=== PATIENT | male | born 1965 | race Hispanic/Latino ===

== ENCOUNTER 2021-07-31 07:26 | Day surgery (SDC) | payer OTHER ==
[2021-07-29 10:33] LABS: Hematocrit 50.5 % (35.5-45.6); Hemoglobin 16.9 gm/dl (11.8-15.2); Mean Corpuscular HGB Conc 34 % (32-34); Mean Corpuscular Volume 91 fl (84-94); Platelet Count 193 K/mm3 (140-440); Red Blood Count 5.56 M/mm3 (3.65-5.03); Red Cell Distribution Width 13.1 % (13.2-15.2)
[2021-07-29 10:55] LABS: Alanine Aminotransferase 20 units/L (7-56); Blood Urea Nitrogen 7 mg/dL (9-20); Calcium 9.7 mg/dL (8.4-10.2); Hemolysis Index 7
[2021-07-29 10:58] LABS: BUN/Creatinine Ratio 12
[2021-07-31] MEDS ORDERED: ceFAZolin/Water 2 GM/20 ML 2 GM/20 ML SYRINGE IV SCH (08:30)
[2021-07-31] MEDS ORDERED: fentaNYL 100 MCG/2 ML INJ ONE (08:41)
[2021-07-31] MEDS ORDERED: propofoL 200 MG/20 ML VIAL IV ONE ×2 (08:41→10:22)
[2021-07-31] MEDS ORDERED: LIDOCAINE MPF (2%) 20 MG/1 ML VIAL 5 ML ONE (08:41)
[2021-07-31] MEDS ORDERED: dexAMETHasone 20 MG/5 ML VIAL ONE (08:46)
[2021-07-31] MEDS ORDERED: ONDANSETRON 4 MG/2 ML INJ ONE (08:46)
[2021-07-31] MEDS ORDERED: LACTATED RINGERS 1,000 ML ONE (08:56)
[2021-07-31] MEDS ORDERED: ceFAZolin/Water 2 GM/20 ML 2 GM/20 ML SYRINGE IV ONE (08:58)
[2021-07-31] MEDS: LACTATED RINGERS 1,000 ML IV SCH (09:10)
--- NOTE | 2021-07-31 09:32 | Anesthesia Day of Surgery ---
Anesthesia Day of Surgery - Day of Surgery Patient Examined: Yes Patient H&P Reviewed: Yes Patient is NPO: Yes Beta Blockers: Yes
[2021-07-31] MEDS ORDERED: HYDROmorphone 1 MG/1 ML INJ IV PRN ×2 (09:34)
[2021-07-31] MEDS ORDERED: ONDANSETRON 4 MG/2 ML INJ IV PRN (09:34)
--- NOTE | 2021-07-31 09:34 | Anesthesia Consultation ---
Anesthesia Consult and Med Hx Date of service: 07/31/21 - Airway Anesthetic Teeth Evaluation: Good ROM Head & Neck: Adequate Mental/Hyoid Distance: Adequate Mallampati Class: Class II Intubation Access Assessment: Good - Pre-Operative Health Status ASA Pre-Surgery Classification: ASA2 Proposed Anesthetic Plan: General - Pulmonary Hx Smoking: Yes (1 PPD X 25 YRS) Hx Respiratory Symptoms: No (+2FS) Hx Sleep Apnea: No ([place] PRE SCREEN HIGH RISK) - Cardiovascular System Hx Hypertension: Yes (X 15 YRS) - Central Nervous System Hx Psychiatric Problems: No - Gastrointestinal Hx Gastroesophageal Reflux Disease: No - Endocrine Hx Renal Disease: Yes (Stone) Hx Non-Insulin Dependent Diabetes: Yes - Hematic Hx Anemia: No - Other Systems Hx Cancer: (SKIN CANCER ONLY- REMOVED) Hx Obesity: No
[2021-07-31] MEDS ORDERED: MIDAZOLAM 2 MG/2 ML INJ IV NR (10:00)
[2021-07-31] MEDS ORDERED: ePHEDrine SULFATE 50 MG/1 ML INJ ONE (10:32)
--- NOTE | 2021-07-31 11:06 | Short Stay Summary ---
Short Stay Documentation Date of service: 07/31/21 - History H&P: obtained from office - Allergies and Medications Current Medications: Allergies naproxen [From Aleve] Allergy (Verified 07/28/21 11:37) Shortness of Breath Home Medications Medication Instructions Recorded Confirmed Last Taken Type Metoprolol [Lopressor] 100 mg PO DAILY 07/28/21 07/28/21 Unknown History Oxycodone HCl/Acetaminophen 1 each PO Q6HR PRN 07/28/21 07/28/21 Unknown History [Percocet 2.5/325 mg] Rosuvastatin Calcium [Crestor] 10 mg PO DAILY 07/28/21 07/28/21 Unknown History lisinopriL [Zestril TAB] 40 mg PO QDAY 07/28/21 07/28/21 Unknown History metFORMIN [Glucophage] 500 mg PO BID 07/28/21 07/28/21 Unknown History traMADoL [Ultram] 50 mg PO Q4HR PRN 07/28/21 07/28/21 Unknown History Active Medications Hydromorphone HCl (Hydromorphone 1 Mg/1 Ml Inj) 0.25 mg IV Q10MIN PRN PRN Reason: Pain, Moderate (4-6) Stop: 08/01/21 09:33 Hydromorphone HCl (Hydromorphone 1 Mg/1 Ml Inj) 0.5 mg IV Q10MIN PRN PRN Reason: Pain , Severe (7-10) Stop: 08/01/21 09:33 Lactated Ringer's (Lactated Ringers) 1,000 mls @ 125 mls/hr IV DIRECT ALIDA Midazolam HCl (Midazolam 2 Mg/2 Ml Inj) 2 mg IV PREOP NR Stop: 07/31/21 23:59 Ondansetron HCl (Ondansetron 4 Mg/2 Ml Inj) 4 mg IV ONCE PRN PRN Reason: Nausea And Vomiting - Brief post op/procedure progress note Date of procedure: 07/31/21 Pre-op diagnosis: rt 8mm stone Post-op diagnosis: same Procedure: ESWL Anesthesia: GETA Surgeon: BRODY NEWBY Pathology: none Condition: stable - Hospital course Hospital course: norco & post op info on chart - Disposition Condition at discharge: Stable Disposition: 01 HOME / SELF CARE / HOMELESS Short Stay Discharge Plan Follow up with: DEBBIE HINDS MD [Primary Care Provider] - 7 Days
--- NOTE | 2021-07-31 12:19 | Post Anesthesia Evaluation ---
- Post Anesthesia Evaluation Patient Participated: Yes Airway Patent: Yes Stable Respiratory Function: Yes Nausea/Vomiting: No Temp > 96.8F: Yes Pain Manageable: Yes Adequeate Hydration: Yes Anesthesia Complications: No Block Receding Appropriately: Not Applicable Patient on Ventilator: No
--- NOTE | 2021-07-31 12:42 | Operative Report ---
DATE OF SURGERY: 07/31/2021 PREOPERATIVE DIAGNOSIS: Right renal stone, 8 mm. POSTOPERATIVE DIAGNOSIS: Right renal stone, 8 mm. PROCEDURE: Right extracorporal shockwave lithotripsy. SURGEON: Horacio Garcia MD ANESTHESIA: General. ESTIMATED BLOOD LOSS: Minimal. FLUIDS: Crystalloid. COMPLICATIONS: No complications. INDICATIONS: This patient is a 56-year-old gentleman presented to the office with right flank pain. He had CT abdomen and pelvis which revealed bilateral small stones, one stone in the right kidney of 8 mm. We discussed options including conservative and surgical treatment here. He wants to proceed with treatment. Risks, benefits and complications were explained. DESCRIPTION OF PROCEDURE: The patient was taken to the operative suite, placed in a supine position. After adequate general anesthesia, stone was localized in 2 planes using fluoroscopy. His 8 mm stone was shocked with extracorporal shockwave lithotripsy with a maximum kV of 8, 2500 shocks, after about 500 renal pause after 200 shocks. We converted to a gating after some ectopy. The patient had received approximately 500-600 shocks before we had to convert to a gating. He tolerated the procedure well otherwise. Stone was fragmented well. He was extubated and taken to recovery room in stable condition. He will go home with [place] and a strainer. TID: [id number] RECEIPT: [id number] ARMANDO/SONA
[2021-07-31 19:46] VITALS: BP 159/85
== END 2021-07-31 07:27 | disposition home or self-care (01) ==
LOC: OR 07:26
PROVIDERS: ATTEND Urology
DX: N20.0 Calculus of kidney (principal); Z20.822 Contact with and (suspected) exposure to COVID-19; I10 Essential (primary) hypertension; E11.9 Type 2 diabetes mellitus without complications; F17.210 Nicotine dependence, cigarettes, uncomplicated; Z85.828 Personal history of other malignant neoplasm of skin; Z79.899 Other long term (current) drug therapy; Z88.8 Allergy status to other drugs, medicaments and biological substances; Z98.890 Other specified postprocedural states
CPT/HCPCS: 36415; 50590; 80053; 82962; 85027; J0690; J1100; J2250; J2405; J2704; J3010; J3490; J7120; U0003